=== PATIENT | male | born 2000 | race Caucasian/White ===

== ENCOUNTER 2023-08-08 10:48 | Emergency (ER) | payer OTHER, SELFPAY ==
[2023-08-08 10:59] VITALS: BP 132/99; PULSE 80; RESP 16; TEMP 37.1; O2SAT 97
--- NOTE | 2023-08-08 11:06 | ED.WOUNDLAC ---
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 Patient reports that he has had a lot of bleeding from his middle finger wound especially from middle finger holding pressure to wounds with towel. Patient reports that his tetanus is not up to date.Patient has linear laceration to the dorsal left index finger at MIP joint area. and flap type of wound to radial aspect of left distal middle finger into pad with tissue to side of nail cut but no actual injury to nail. Onset (ago): day(s) (between [id number]- today) Location: other (left index and middle finger) Place: work Patient tetanus UTD: No Treatments prior to arrival: bandage Related Data Allergies Allergy/AdvReac Type Severity Reaction Status Date / Time bacitracin Allergy Unknown Rash Verified 08/08/23 15:09 polymyxin B Allergy Unknown Hives Verified 08/08/23 15:09 Review of Systems Review of Systems: CONSTITUTIONAL: Denies fever, chills, or sweats. CARDIOVASCULAR: Denies chest pain, palpitations, or edema. RESPIRATORY: Denies cough or dyspnea. SKIN: Reports laceration to the left index and middle finger while using a utility knife to cut drywall, some active bleeding noted. MUSCULOSKELETAL: Denies musculoskeletal pain NEUROLOGIC: Denies numbness, or weakness. All systems reviewed & are unremarkable except as noted in HPI and below PMFSH Family History Family History Other Cerebrovascular accident Diabetes mellitus Family history of cardiovascular disease Hypertension Social History Social History Smoking status: Current every day smoker Alcohol intake: current Comments At time of signature, agree with nursing past medical, surgical, social and family history. There is no relevant family history pertinent to the presenting complaint Exam Narrative: GENERAL: Well-appearing, well-nourished, and in no acute distress. HEAD: Normocephalic, atraumatic. NECK: Supple.no lymphadenopathy CHEST: Clear to auscultation. No respiratory distress.KARLI 97% on room air HEART: Regular rate and rhythm. No murmur heard. Normal peripheral pulses. EXTREMITIES: Normal range of motion. No edema. SKIN: Warm, dry, no rash. Reports 2cm linear laceration over MIP joint no present active bleeding full mobility of left index finger, flap type of laceration to radial aspect of left middle finger extending to fat pad area with some small amount of bleeding, measures 4cm X 0,5cm NEURO: No focal deficits. Alert and oriented x3. Course Course Level of Care: Express Care Visit Vital Signs Vital signs: Vital Signs Temperature 37.1 C 08/08/23 10:59 Pulse Rate 80 08/08/23 10:59 Respiratory Rate 16 08/08/23 10:59 Blood Pressure 132/99 H 08/08/23 10:59 Pulse Oximetry 97 08/08/23 10:59 Temperature 37.1 C 08/08/23 10:59 Pulse Rate 80 08/08/23 10:59 Respiratory Rate 16 08/08/23 10:59 Blood Pressure 132/99 H 08/08/23 10:59 Pulse Oximetry 97 08/08/23 10:59 Procedures Laceration Laceration 1: Date: 08/08/23 Time: 11:20 Site: hand (index finger) Side (If applicable): left Size (cm): 2 Description: linear Depth: simple, single layer Local Anesthetic: lidocaine 1% Amount of anesthesia used (mL): 4 Pre-repair: wound explored, irrigated extensively and other (surclens wound cleanser) ====== Skin Level ====== Skin
[2023-08-08] MEDS: TETANUS,DIPHTHERIA,AC PERTUSSIS ADULT (0.5 ML) BOOSTRIX IM (11:33)
[2023-08-08] MEDS: LIDOCAINE HCL 1% PF INJ 5 ML VIAL 8 ML INFILTRATE (11:35)
--- NOTE | 2023-08-08 12:01 | PC.NURSE ---
1140- provider is using 10ml lidocaine, so she will have to edit order.
[2023-08-08] MEDS: LIDOCAINE HCL 1% LOCAL INJ 2 ML AMPUL INFILTRATE (14:36)
== END 2023-08-08 12:35 | disposition home or self-care (01) ==
PROVIDERS: Emergency Provider Registered Nurse
DX: S61.211A Laceration without foreign body of left index finger without damage to nail, initial encounter (principal); S61.213A Laceration without foreign body of left middle finger without damage to nail, initial encounter; W27.8XXA Contact with other nonpowered hand tool, initial encounter; Y99.0 Civilian activity done for income or pay; Z23 Encounter for immunization; F17.200 Nicotine dependence, unspecified, uncomplicated
CPT/HCPCS: 12002; 90471; 90715; 99213; G0463

== ENCOUNTER 2023-08-18 16:22 | Emergency (ER) | payer OTHER, SELFPAY ==
--- NOTE | 2023-08-18 16:25 | ED.WOUNDLAC ---
HPI - Wound/Laceration General Chief Complaint: Wound/Laceration Stated Complaint: Stitches Removal Time Seen by Provider: 08/18/23 16:25 Source: patient Mode of arrival: ambulatory Limitations: no limitations History of Present Illness HPI narrative: Andrea is a 23-year-old male patient presenting to the clinic today for suture removal. He reports that he has had the sutures in for approximately 10 days. 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 He is concerned that the distal index finger may be infected. Was given Keflex and states he has finished the antibiotic. Related Data Allergies Allergy/AdvReac Type Severity Reaction Status Date / Time bacitracin Allergy Unknown Rash Verified 08/08/23 15:09 polymyxin B Allergy Unknown Hives Verified 08/08/23 15:09 Review of Systems Review of Systems: Pertinent positives per HPI. Patient denies any fever, chills, rash, headache, visual changes, dizziness, cough, runny nose, sore throat, shortness of breath, chest pain, palpitations, nausea, vomiting, diarrhea, constipation, abdominal pain, or any urinary issues. [facility] Family History Family History Other Cerebrovascular accident Diabetes mellitus Family history of cardiovascular disease Hypertension Social History Social History Smoking status: Current every day smoker Alcohol intake: current Comments At the time of my signature, I reviewed and agree with the nursing past medical, surgical, social, and family history. There is no relevant family history pertinent to the patient complaint. Exam Narrative: General: Well-developed, well nourished, in no apparent distress Head: Normocephalic, atraumatic. Cardio: Regular rate and rhythm, s1 and s2 normal, no murmur appreciated. Resp: Clear to auscultation bilaterally, no rhonchi, rales, wheezing or rubs. Integumentary: [place], warm, and dry, 4 sutures removed from the middle finger over the PIP joint and there was mild dehiscence. Steri-Strips were applied. Did not remove the stitches from the distal index finger as appears to be mildly infected. Patient noting some yellow discharge coming from the wound and wound is mildly red. Course Course Emergency Course: Portions of this record may have been created with voice recognition software. Level of Care: Express Care Visit Vital Signs Vital signs: Vital Signs Temperature 37.2 C 08/18/23 16:32 Pulse Rate 93 08/18/23 16:32 Respiratory Rate 16 08/18/23 16:32 Blood Pressure 120/68 08/18/23 16:32 Pulse Oximetry 98 08/18/23 16:32 Temperature 37.2 C 08/18/23 16:32 Pulse Rate 93 08/18/23 16:32 Respiratory Rate 16 08/18/23 16:32 Blood Pressure 120/68 08/18/23 16:32 Pulse Oximetry 98 08/18/23 16:32 Vital signs reviewed MDM - Wound/Laceration MDM Narrative Medical decision making narrative: At the time of visit patient is resting comfortably on the exam table. Patient appears to be nontoxic. Procedures: For sutures were removed from the left 3rd finger over the PIP joint. There was some mild dehiscence so Steri-Strips were applied. Will not remove 2nd finger distal phalanx stitches at this time as the wound appears to be mildly infected. Will send in prescription for Keflex. Plan: Suture removal was performed and Steri-Strips were applied to the 3rd digit, I suspect the distal index finger is mildly infected. Prescription for Keflex was sent to the pharmacy. Supportive measures were discussed with the patient and they voiced understanding discharge instructions and agrees to treatment plan. Return precautions reviewed Differential Diagnosis Differential diagnosis: Likely laceration, abscess and other Discharge Plan Discharge Clinical Impression: Encounter
[2023-08-18 16:32] VITALS: BP 120/68; PULSE 93; RESP 16; TEMP 37.2; O2SAT 98
--- NOTE | 2023-08-18 16:43 | PC.NURSE ---
see provider note. not all sutures are removed due to not ready
== END 2023-08-18 16:48 | disposition home or self-care (01) ==
PROVIDERS: Emergency Provider Nurse Practitioner Family
DX: S61.213D Laceration without foreign body of left middle finger without damage to nail, subsequent encounter (principal); W27.8XXD Contact with other nonpowered hand tool, subsequent encounter; T81.41XA Infection following a procedure, superficial incisional surgical site, initial encounter; L03.012 Cellulitis of left finger; F17.200 Nicotine dependence, unspecified, uncomplicated
CPT/HCPCS: 99213; G0463

== ENCOUNTER 2023-08-24 16:18 | Emergency (ER) | payer OTHER, SELFPAY ==
[2023-08-24 16:35] VITALS: BP 130/84; PULSE 86; RESP 16; TEMP 37.1; O2SAT 99
--- NOTE | 2023-08-24 16:54 | ED.GENADULT ---
HPI - General Adult General Chief complaint: Wound/Laceration Stated complaint: suture removal Time Seen by Provider: 08/24/23 16:54 Source: patient, RN notes reviewed and old records reviewed Mode of arrival: ambulatory Limitations: no limitations History of Present Illness HPI narrative: 23-year-old male to Express Care requesting suture removal From left Third distal finger. patient endorses being seen here at time of injury sutures placed. Patient states he was seen here ago to have some sutures removed from palm of hand. Patient was advised at that time to give sutures on finger a few more days of removal. Wound well approximated. Patient in no acute distress Related Data Allergies Allergy/AdvReac Type Severity Reaction Status Date / Time bacitracin Allergy Unknown Rash Verified 08/08/23 15:09 polymyxin B Allergy Unknown Hives Verified 08/08/23 15:09 Review of Systems Review of Systems: All systems reviewed & are unremarkable except as noted in HPI and below Constitutional: Constitutional: Reports no additional constitutional complaints Eyes: Eyes: Reports no additional eye complaints ENT: Reports system reviewed and no additional complaints, except as documented Cardiovascular: Cardiovascular: Reports no additional cardiovascular complaints, Denies chest pain and Denies dyspnea Respiratory: Respiratory: Reports no additional respiratory complaints, Denies cough and Denies dyspnea Musculoskeletal: Musculoskeletal: Reports no additional musculoskeletal complaints Integumentary/Breasts: Skin/Breast: Reports wounds Comments: 8 sutures present to distal 3rd digit left hand Neurologic: Reports system reviewed and no additional complaints, except as documented Psychiatric: Psychiatric: Reports no additional psychiatric complaints PMFSH Family History Family History Other Cerebrovascular accident Diabetes mellitus Family history of cardiovascular disease Hypertension Social History Social History Smoking status: Current every day smoker Alcohol intake: current Comments At the time of my signature, I reviewed and agree with the nursing past medical, surgical, social, and family history. There is no relevant family history pertinent to the patient complaint. Exam Const: General: cooperative, healthy appearing, comfortable, no acute distress, alert and well nourished Nutritional Appearance: well nourished Orientation/consciousness: patient oriented x3 Limitations: no limitations HENMT: Head: normal to inspection Ears: external ears normal Face/Nose/Sinus: Normal external nose present, Normal nares present, normal facial exam, No erythema and No edema Face and sinus: normal facial exam, no erythema and no edema Mouth: Yes Normal oral and palatal mucosa present Eyes: General: appearance normal, both eyes and all related structures Neck: Neck: normal visual inspection, full ROM and no meningeal signs Lymphatic: no lymphadenopathy noted and no lymphedema noted Chest: Chest palpation & inspection: normal inspection of the chest Resp: Effort & Inspection: normal respiratory effort and able to speak in complete sentences Auscultation: clear to auscultation bilaterally Cardio: Jugular venous distension: no JVD Rate: regular rate Rhythm: regular rhythm Back/Spine/Pelvis: Cervical Spine: cervical ROM normal Skin: General skin exam: normal color, no rashes or lesions noted and turgor normal Neuro: General: patient oriented x3, gait normal, moves all extremities and no meningeal signs Speech: normal speech Gait exam (Neuro): Normal gait present Extrem: General: normal to inspection, full ROM and capillary refill normal Psych: Appearance: grossly normal and well kempt Course Course Emergency Course: Some parts of this dictation were generated by [employer]
== END 2023-08-24 17:15 | disposition home or self-care (01) ==
PROVIDERS: Emergency Provider Nurse Practitioner Family
DX: S61.213D Laceration without foreign body of left middle finger without damage to nail, subsequent encounter (principal); X58.XXXD Exposure to other specified factors, subsequent encounter; F17.200 Nicotine dependence, unspecified, uncomplicated
CPT/HCPCS: 99211; G0463